=== PATIENT | male | born 1990 | race Two or more races ===

== ENCOUNTER 2022-06-02 17:12 | Emergency (ER) | payer OTHER ==
[~2022-06-02] VITALS: Ht 182.9 cm; Wt 127.0 kg
[2022-06-02 17:28] VITALS: BP 150/92
[2022-06-02] MEDS ORDERED: NAPR-1009 PO (18:44)
--- NOTE | 2022-06-02 18:50 | NUR ---
superficial wound on left wrist cleaned as instructed
[2022-06-02] MEDS ORDERED: TDAP [DIPH/PERTUSSIS/TET] 0.5 ML VIAL IM ONE ×2 (19:00→19:04)
== END 2022-06-02 19:42 | disposition home or self-care (01) ==
LOC: ER 17:27
DX: S80.01XA Contusion of right knee, initial encounter (principal); S60.812A Abrasion of left wrist, initial encounter; S60.415A Abrasion of left ring finger, initial encounter; W01.0XXA Fall on same level from slipping, tripping and stumbling without subsequent striking against object, initial encounter; Y93.89 Activity, other specified; Y92.89 Other specified places as the place of occurrence of the external cause; Y99.0 Civilian activity done for income or pay
CPT/HCPCS: 73564-TC; 90715